=== PATIENT | female | born 1980 | race Caucasian/White ===

== ENCOUNTER 2017-12-05 14:21 | Emergency (ER) | payer OTHER, BC ==
[2017-12-05 15:54] LABS: APPEARANCE, URINE CLOUDY (CLEAR); BACTERIA, URINE AUTO 3+ (NEGATIVE); BILIRUBIN, URINE AUTO NEGATIVE (NEGATIVE); BLOOD, URINE BLOOD 1+ (NEGATIVE); COLOR, URINE YELLOW (YELLOW); GLUCOSE, URINE (UA) AUTO NEGATIVE (NEGATIVE); KETONE, URINE AUTO NEGATIVE (NEGATIVE); LEUKOCYTE ESTERASE, URINE AUTO 1+ (NEGATIVE); MUCUS, URINE SMALL (NEGATIVE); NITRITE, URINE AUTO POSITIVE (NEGATIVE); PROTEIN, URINE AUTO NEGATIVE (NEGATIVE); RBC, URINE AUTO 7 /HPF (0-3); SPECIFIC GRAVITY URINE AUTO 1.021 (1.002-1.035); SQUAMOUS EPITHELIAL CELL UR AU 50 /HPF (0-6); UROBILINOGEN, URINE AUTO 0.2 mg/dL (0.0-2.0); WBC, URINE AUTO 24 /HPF (0-3)
[2017-12-05] MEDS: KETOROLAC 60 MG/2 ML VIAL (J1885) IM (16:04)
[2017-12-05] MEDS: predniSONE 20 MG TAB PO (16:05)
[2017-12-05] MEDS: NORCO, ANEXSIA 5/325MG TABLET (HYDROcodone/ACETAMINOPHEN) PO (16:05)
== END 2017-12-05 17:21 | disposition home or self-care (01) ==
LOC: M ED 14:21
DX: M47.814 Spondylosis without myelopathy or radiculopathy, thoracic region (principal); M47.817 Spondylosis without myelopathy or radiculopathy, lumbosacral region; K80.10 Calculus of gallbladder with chronic cholecystitis without obstruction; Z91.81 History of falling; N28.89 Other specified disorders of kidney and ureter; M54.9 Dorsalgia, unspecified; G89.29 Other chronic pain; K76.9 Liver disease, unspecified; J45.909 Unspecified asthma, uncomplicated; Z87.440 Personal history of urinary (tract) infections; F17.200 Nicotine dependence, unspecified, uncomplicated
CPT/HCPCS: J1885

== ENCOUNTER 2018-11-23 06:44 | Emergency (ER) | payer OTHER ==
[~2018-11-23] VITALS: Ht 190.5 cm; Wt 127.3 kg
[~2018-11-23 06:44] MED LIST: MEDR4PAK PO; NAPR-837 PO; VENTAER
[2018-11-23] MEDS ORDERED: NS 1,000 ML IV ONE (07:45)
[2018-11-23] MEDS ORDERED: KETOROLAC 30 MG/ML VIAL (J1885) IV ONE (07:45)
[2018-11-23] MEDS ORDERED: ONDANSETRON 4MG/2ML VIAL (J2405) IV ONE (07:45)
[2018-11-23 08:29] LABS: BASO # 0.1 10^3/uL (0.0-0.2); BASO % 0.8 % (0.0-1.0); EOS # 0.2 10^3/uL (0.0-0.50); EOS % 3.5 % (0.0-3.0); HEMATOCRIT 40.3 % (36.0-47.0); HEMOGLOBIN 13.2 g/dl (12.0-15.5); LYMPH # 1.3 10^3/uL (1.5-4.5); MEAN CORPUSCULAR HEMOGLOBIN 28.8 pg (27.0-33.0); MEAN CORPUSCULAR HGB CONC 32.8 g/dl (32.0-36.5); MEAN CORPUSCULAR VOLUME 87.8 fl (80.0-96.0); MONO # 0.4 10^3/uL (0.0-0.8); MONO % 5.5 % (0.0-5.0); NEUTROPHILS # 4.6 10^3/uL (1.8-7.7); NEUTROPHILS % 69.9 % (36.0-66.0); PLATELET COUNT, AUTOMATED 191 10^3/uL (150-450); RED BLOOD COUNT 4.59 10^6/uL (4.00-5.40); WHITE BLOOD COUNT 6.5 10^3/uL (4.0-10.0)
[2018-11-23] MEDS ORDERED: ISOVUE-370 76% 100ML VIAL (Q9967) As Ordered ONE (08:43)
[2018-11-23 08:50] LABS: ALBUMIN 3.3 GM/DL (3.2-5.2); BILIRUBIN,DIRECT 0.1 MG/DL (0.0-0.2); BILIRUBIN,TOTAL 0.3 MG/DL (0.2-1.0)
--- NOTE | 2018-11-23 09:16 | REP ---
Clinical: Diffuse abdominal pain. Technique: Axial contrast enhanced images from the lung bases to the pubic symphysis using 100 ml Isovue 370 intravenous contrast material with coronal and sagittal re-formations. Comparison: 12/05/2017. Findings: Diffuse fatty infiltration to the liver noted without focal hepatic lesion. Spleen, pancreas, bilateral adrenal glands and kidneys are normal / stable. Cholelithiasis noted without acute cholecystitis. The enteric system is without obstruction or acute inflammatory process. Normal terminal ileum and appendix identified in the right lower quadrant. Pelvis demonstrates irregular rim-enhancing right ovarian cyst with small amount of adjacent free fluid extending into the pelvis consistent with ruptured ovarian cyst and likely related to patient's symptoms. Uterus and left adnexa appear normal. Bladder is unremarkable. No free air. No adenopathy. Abdominal aorta without aneurysm. Musculoskeletal structures are intact. Impression: 1. Ruptured right ovarian cyst with small amount of fluid extending into the pelvis may be related to patient's symptoms. 2. Fatty infiltration to the liver without focal hepatic lesion. 3. Cholelithiasis. Electronically Signed by Rob Eubanks MD 11/23/2018 09:07 A
[2018-11-23 09:59] VITALS: BP 95/74
== END 2018-11-23 10:17 | disposition home or self-care (01) ==
LOC: M ED 06:44
DX: K80.70 Calculus of gallbladder and bile duct without cholecystitis without obstruction (principal); N83.201 Unspecified ovarian cyst, right side; K76.0 Fatty (change of) liver, not elsewhere classified; R11.2 Nausea with vomiting, unspecified; K27.9 Peptic ulcer, site unspecified, unspecified as acute or chronic, without hemorrhage or perforation; F17.210 Nicotine dependence, cigarettes, uncomplicated; Z79.899 Other long term (current) drug therapy
CPT/HCPCS: 74177; 80047; 80076; 81001; 83690; 84702; 85025; 87088; 87186; 96374; 96375; 99284; J1885; J2405; Q9967

== ENCOUNTER → 2019-08-01 | Outpatient (CLI) | payer OTHER ==
--- NOTE | 2019-08-01 14:02 | REP ---
limited lumbar spine due to disability determination. Comparison examination is 05/27/2010. Limited three-view examination of the lumbar spine shows moderate L5-S1 disc space narrowing and mild to moderate posterior disc space narrowing at the level above. There is anterior lipping at every level. Vertebral body height and alignment is within normal limits. Degenerative facet joint changes are seen at L4-5 and L5-S1 bilaterally which is mild to moderate and mild degenerative changes are seen at the L3-4 level bilaterally. These have increased slightly from prior exam. IMPRESSION: Chronic changes as described above. Electronically Signed by Avila Pollack DO 08/01/2019 02:46 P
--- NOTE | 2019-08-02 04:20 | REP ---
Clinical: Right heel pain. Technique: AP, lateral, bilateral oblique views right foot . Findings: Generalized age-related changes are appreciated. No obvious acute fracture or dislocation. Lateral view demonstrates small calcaneal heal spur. No abnormal soft tissue calcifications identified. Impression: Small calcaneal heal spur. Electronically Signed by Rob Eubanks MD 08/02/2019 04:13 A
== END ==
LOC: M RAD 11:05
PROVIDERS: ATTEND Internal Medicine
DX: M51.37 Other intervertebral disc degeneration, lumbosacral region (principal); M77.31 Calcaneal spur, right foot

== ENCOUNTER 2023-01-16 16:38 | Emergency (ER) | payer OTHER ==
[~2023-01-16] VITALS: Ht 190.5 cm; Wt 139.2 kg
[2023-01-16 16:39] VITALS: O2SAT 96
[2023-01-16] MEDS ORDERED: TIZA2TA (16:47)
[2023-01-16] MEDS ORDERED: QVAR80AE8 (16:47)
[2023-01-16] MEDS ORDERED: TRAM50TA2 (16:47)
[2023-01-16] MEDS ORDERED: FLUO20CA22 (16:47)
[2023-01-16 17:41] LABS: BASO # 0.1 10^3/uL (0.0-0.2); BASO % 0.8 % (0.0-1.0); EOS # 0.3 10^3/uL (0.0-0.5); EOS % 4.3 % (0.0-3.0); HEMATOCRIT 42.3 % (36.0-47.0); HEMOGLOBIN 13.4 g/dl (12.0-15.5); LYMPH # 2.3 10^3/uL (1.5-5.0); LYMPH % 28.3 % (24.0-44.0); MEAN CORPUSCULAR HEMOGLOBIN 28.2 pg (27.0-33.0); MEAN CORPUSCULAR HGB CONC 31.7 g/dl (32.0-36.5); MEAN CORPUSCULAR VOLUME 88.9 fl (80.0-96.0); MONO # 0.5 10^3/uL (0.0-0.8); MONO % 5.9 % (2.0-8.0); NEUTROPHILS # 4.8 10^3/uL (1.5-8.5); NEUTROPHILS % 60.2 % (36.0-66.0); PLATELET COUNT, AUTOMATED 220 10^3/uL (150-450); RED BLOOD COUNT 4.76 10^6/uL (4.00-5.40)
[2023-01-16 17:57] LABS: BLOOD UREA NITROGEN 9 MG/DL (9-23); CALCIUM LEVEL 9.3 MG/DL (8.5-10.1); CARBON DIOXIDE LEVEL 25 MMOL/L (20-31); CHLORIDE LEVEL 107 MMOL/L (98-107); CREATININE FOR GFR 0.67 MG/DL (0.55-1.30); GLOMERULAR FILTRATION RATE > 60.0 (>58); GLUCOSE, FASTING 85 MG/DL (60-100); HCG, SERUM QUANTITATIVE < 2.6 MIU/ML (<4.2); POTASSIUM SERUM 4.2 MMOL/L (3.5-5.1); SODIUM LEVEL 140 MMOL/L (136-145)
[2023-01-16 18:07] LABS: ERYTHROCYTE SEDIMENTATION RATE 53 mm/hr (0-20)
[2023-01-16 18:53] LABS: INR 1.07; PROTHROMBIN TIME 13.6 SECONDS (12.5-14.5)
[2023-01-16 18:54] LABS: PARTIAL THROMBOPLASTIN TIME 27.5 SECONDS (24.8-34.2)
[2023-01-16 18:56] LABS: D-DIMER QUANT 0.32 ug/mL (<0.5)
[2023-01-16 19:01] LABS: ALBUMIN 3.5 G/DL (3.2-5.2); ALKALINE PHOSPHATASE 113 U/L (46-116); ALT/SGPT 61 U/L (7.0-40); AST/SGOT 49 U/L (<34); BILIRUBIN,DIRECT 0.1 MG/DL (<0.4); BILIRUBIN,TOTAL 0.3 MG/DL (0.3-1.2); CK-MB VALUE MASS < 1.0 NG/ML (<3.6); CPK CREATINE PHOSPHOKINASE 119 U/L (34-145); MAGNESIUM LEVEL 1.9 MG/DL (1.8-2.4); MB/CK RELATIVE INDEX 0.84 (< OR =4); RHEUMATOID FACTOR QUANT 8.2 IU/ML (<14)
[2023-01-16 19:04] LABS: THYROID STIMULATING HORMONE 2.189 uIU/ML (0.55-4.78)
[2023-01-16] MEDS ORDERED: KETOROLAC 30 MG/ML 1ML VIAL IV ONE (20:00)
[2023-01-16] MEDS ORDERED: PRED20TA PO (20:53)
[2023-01-16] MEDS ORDERED: predniSONE 20 MG TAB PO ONE (20:55)
[2023-01-16 21:03] VITALS: BP 144/76; TEMP 97.9
== END 2023-01-16 21:04 | disposition home or self-care (01) ==
LOC: M ED 16:38
DX: R22.43 Localized swelling, mass and lump, lower limb, bilateral (principal); E66.9 Obesity, unspecified; J45.909 Unspecified asthma, uncomplicated; J44.9 Chronic obstructive pulmonary disease, unspecified; F41.9 Anxiety disorder, unspecified; M54.9 Dorsalgia, unspecified; K80.20 Calculus of gallbladder without cholecystitis without obstruction; F17.200 Nicotine dependence, unspecified, uncomplicated; Z83.2 Family history of diseases of the blood and blood-forming organs and certain disorders involving the immune mechanism
CPT/HCPCS: 71046; 73620; 80048; 80076; 82550; 82553; 83605; 83735; 83880; 84439; 84443; 84702; 85025; 85379; 85610; 85652; 85730; 86140; 86431; 86618; 87040; 93005; 96374; 99284; J1885; J7512

== ENCOUNTER → 2024-05-12 | Outpatient (REF) ==
[~2024-05-12] MED LIST changes: +FLUO-365; +PRED20TA PO; +QVAR80AE8; +TIZA2TA; +TRAM50TA2
== END ==
LOC: M PLAIMG 12:42
PROVIDERS: ATTEND Internal Medicine
DX: M77.31 Calcaneal spur, right foot (principal)